=== PATIENT | female | born 1960 | race Caucasian/White ===

== ENCOUNTER 2016-07-23 09:36 | Emergency (ER) | payer BC ==
[2016-07-23] MEDS ORDERED: Albuterol 2.5 MG/3 ML NEB.SOL* (0.083%) INH ONE (10:39)
--- NOTE | 2016-07-23 10:50 | UC ---
Respiratory Complaint HPI - History of Current Complaint Chief Complaint: UCRespiratory Stated Complaint: COUGH,PASTRANA Time Seen by Provider: 07/23/16 10:44 Hx Obtained From: Patient Hx Last Menstrual Period: yrs ?: No Onset/Duration: Sudden Onset, Lasting Weeks - 1, Worse Since - last couple of days Severity Initially: Mild Severity Currently: Moderate Character: Cough: Productive - brown yellow sputum Aggravating Factors: Recumbent Position Alleviating Factors: Nothing Associated Signs And Symptoms: Positive: Fever, Chills, URI, Nasal Congestion, Sinus Discomfort - Risk Factors Pulmonary Embolism Risk Factors: Negative Cardiac Risk Factors: Family History Pseudomonas Risk Factors: Negative - Allergies/Home Medications Allergies/Adverse Reactions: Allergies Allergy/AdvReac Type Severity Reaction Status Date / Time Meperidine [From Demerol HCl] Allergy Hives Verified 07/23/16 10:46 tramadol Allergy Hives Uncoded 07/23/16 10:46 Home Medications: Home Medications [id number]-HP [Nighttime Cold Flu & Reli 15-6.25-325 mg] 1 cap PO BEDTIME PRN 07/23/16 [History Confirmed 07/23/16] Dextromethorphan-Phenylephrine [Daytime Cold & Flu Relief 10-5-325 mg] 1 dose PO TID PRN 07/23/16 [History Confirmed 07/23/16] PMH/Surg Hx/FS Hx/Imm Hx Previously Healthy: Yes Cardiovascular History Of: Denies: Hypertension Respiratory History Of: Denies: Asthma - Surgical History Surgical History: Yes Surgery Procedure, Year, and Place: Left arm, left hand finger - Family History Known Family History: Positive: Diabetes - Social History Occupation: Unemployed Lives: With Family Alcohol Use: Occasionally Substance Use Type: None Smoking Status (MU): Never Smoked Tobacco Review of Systems Constitutional: Fever, Fatigue ENT: Nasal Discharge Respiratory: Cough Neurological: Headache - frontal sinus headache All Other Systems Reviewed And Are Negative: Yes Physical Exam Triage Information Reviewed: Yes Appearance: No Pain Distress, Well-Nourished, Ill-Appearing Vital Signs: Initial Vital Signs Temp 97.5 F 07/23/16 10:20 Pulse 68 07/23/16 10:20 Resp 24 07/23/16 10:20 BP 125/80 07/23/16 10:20 Pulse Ox 90 07/23/16 10:20 Vital Signs Reviewed: Yes Eyes: Positive: Conjunctiva Clear ENT: Positive: Pharynx normal, Nasal congestion, TMs normal Neck exam: Normal Respiratory: Positive: Wheezing - expiratory, worse with coughing. Cardiovascular Exam: Normal Musculoskeletal Exam: Normal Neurological Exam: Normal Psychological Exam: Normal Skin Exam: Normal UC Diagnostic Evaluation - Laboratory O2 Sat by Pulse Oximetry: 90 Re-Evaluation - Re-Evaluation First Eval Re-Evaluation Time: 11:27 Change: Improved - Wheezing less on exam. Respiratory Course/Dx - Differential Dx/Diagnosis Differential Diagnosis/HQI/PQRI: Lower Resp Infection, Sinusitis Provider Diagnoses: Acute Sinusitis. Acute bronchopneumonia. Acute bronchospasm. Acute URI Discharge - Discharge Plan Condition: Stable Disposition: HOME Prescriptions: Levofloxacin TAB* [Levaquin 500 Tab*] 500 mg PO DAILY #10 tab predniSONE TAB* [Deltasone TAB*] 20 mg PO DAILY #18 tab Patient Education Materials: Upper Respiratory Infection (ED), Sinusitis (ED), Pneumonia (ED), Levofloxacin (By mouth), Bronchospasm (ED), Prednisone (By mouth ) Additional Instructions: If you feel worse at all go to the ER. Follow up with your primary care physician in 5 days. NASAL SPRAYS AND DROPS: Afrin in the PUMP/ MIST bottle. Tilt your head down and look at the floor while spraying the spray. Decongestant nasal sprays and drops often give dramatic relief from congestion. They are often recommended for patients with sinus infection to assist with sinus drainage. Persons with high blood pressure should consult the doctor before using these nasal sprays. Afrin and Adeel-Synephrine are common ccxy-dvq-obvapxi preparations. They should not be used for more than five days, as "rebound" congestion can occur - - the congestion flares as the drug wears off. A way of dealing with this rebound congestion problem is to medicate only one nostril each time, allowing the other nostril to recover from the medicine' s effects. When you no longer need the drug during the day, spray only one nostril each night. This helps you sleep well without severe rebound congestion. Call the doctor if you develop severe headache, palpitations, or chest pain.
[2016-07-23] MEDS ORDERED: Ipratropium 0.5MG/2.5ML NEB* 0.5 MG/2.5 ML NEB.SOLN INH ONE (10:55)
--- NOTE | 2016-07-23 11:22 | RAD ---
INDICATION: Cough. Short of breath. COMPARISON: None TECHNIQUE: PA and lateral dual-energy views were obtained. FINDINGS: Bones/Soft Tissues: There are no acute bony findings. Cardiomediastinal: The cardiomediastinal silhouette is normal. Lungs: There are no infiltrates. Pleura: There are no pleural effusions. Other: None IMPRESSION: NO ACTIVE DISEASE.
[2016-07-23] MEDS ORDERED: Levofloxacin TAB* 250 MG PO ONE (11:27)
[2016-07-23] MEDS ORDERED: Albuterol HFA INHALER* 8 gm MDI INH ONE (11:27)
[2016-07-23] MEDS ORDERED: methylPREDNISolone 125 MG* 2 ML VIAL IM ONE (11:27)
[2016-07-23 12:00] VITALS: BP 127/69
== END 2016-07-23 12:14 | disposition home or self-care (01) ==
LOC: UCCORT 09:36
DX: J01.90 Acute sinusitis, unspecified (principal); J18.0 Bronchopneumonia, unspecified organism; J98.01 Acute bronchospasm; J06.9 Acute upper respiratory infection, unspecified; Z88.5 Allergy status to narcotic agent
CPT/HCPCS: 71020; 96372; 99203; A9270-GY; G0463; J2930; J7644